=== PATIENT | male | born 1960 | race Caucasian/White ===

== ENCOUNTER 2016-10-31 14:33 | Emergency (ER) | payer OTHER ==
[2016-10-31 15:06] VITALS: BP 137/75
[2016-10-31] MEDS ORDERED: Tetan/Diph/Pertus SYR(Tdap)* 0.5 ML SYR(BOOSTRIX) use SYR IM ONE (16:26)
[2016-10-31] MEDS ORDERED: Acetaminophen TAB* 325 MG PO ONE (16:34)
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
--- NOTE | 2016-10-31 17:21 | RAD ---
HISTORY: Head trauma COMPARISONS: May 06, 2003 TECHNIQUE: Multiple contiguous axial CT scans were obtained of the head without intravenous contrast. FINDINGS: HEMORRHAGE/INFARCT: There is no hemorrhage or acute infarct. MASSES/SHIFT: There is no mass or shift. EXTRA-AXIAL SPACES: There are no extra-axial fluid collections. SULCI AND VENTRICLES: The sulci and ventricles are normal in size and position for the patient's stated age. CEREBRUM: There are no focal parenchymal abnormalities. BRAINSTEM: There are no focal parenchymal abnormalities. CEREBELLUM: There are no focal parenchymal abnormalities. VESSELS: The vessels are grossly normal. PARANASAL SINUSES: The paranasal sinuses are clear. ORBITS: The orbits are unremarkable. BONES AND SOFT TISSUE: No bone or soft tissue abnormalities are noted. OTHER: None IMPRESSION: NO ACUTE INTRACRANIAL PATHOLOGY.
[2016-10-31] MEDS ORDERED: Lidocaine 1% MPF* 2 ML VIAL ONE (17:27)
== END 2016-10-31 18:02 | disposition home or self-care (01) ==
LOC: UCCORT 14:33
DX: S01.112A Laceration without foreign body of left eyelid and periocular area, initial encounter (principal); S06.0X9A Concussion with loss of consciousness of unspecified duration, initial encounter; W20.8XXA Other cause of strike by thrown, projected or falling object, initial encounter; Y93.9 Activity, unspecified; Y99.9 Unspecified external cause status
CPT/HCPCS: 12013; 70450; 90471; 90715; 99212; A9270-GY; G0463

== ENCOUNTER 2018-03-09 16:47 | Emergency (ER) | payer BC ==
[2018-03-09] MEDS ORDERED: Diazepam TAB(*) 5 MG PO ONE ×2 (17:35→20:21)
[2018-03-09 18:07] LABS: Hematocrit 43 % (42-52); Hemoglobin 14.6 g/dl (14.0-18.0); Mean Corpuscular HGB Conc 34 g/dl (31-36); Mean Corpuscular Hemoglobin 32 pg (27-31); Mean Corpuscular Volume 95 fL (80-94); Mean Platelet Volume 7.4 um3 (7.4-10.4); Platelet Count 210 10^3/ul (150-450); Red Blood Count 4.51 10^6/ul (4.00-5.40); Red Cell Distribution Width 13 % (10.5-15); White Blood Count 15.9 10^3/ul (3.5-10.8)
[2018-03-09 18:30] LABS: EGFR Non-African American 88.6 (>60)
--- NOTE | 2018-03-09 18:35 | RAD ---
INDICATION: Shortness of breath, neck stiffness. COMPARISON: January 11, 2012 CT abdomen. TECHNIQUE: Dual energy PA and routine lateral views of the chest were obtained. REPORT: Clear lungs and pleural spaces. Negative for pneumothorax. Negative for cardiomegaly. Unremarkable central pulmonary vasculature. Mildly tortuous descending thoracic aorta. IMPRESSION: #. No evidence for acute intrathoracic disease.
[2018-03-09 18:38] LABS: ABS Basophils 0.1 10^3/ul (0-0.2); ABS Eosinophils 0.1 10^3/ul (0-0.6); ABS Lymphocytes 6.6 10^3/ul (1.0-4.8); ABS Monocytes 1.2 10^3/ul (0-0.8); ABS Nucleated RBC 0.1 10^3/ul; Eosinophil % 0.8 % (0-6); Lymphocyte % 41.4 % (25-47); Nucleated Red Blood Cells % 0.3
[2018-03-09] MEDS ORDERED: Iohexol 300* (CONTRAST) 10 ML SDV IV ONE (18:44)
--- NOTE | 2018-03-09 18:58 | ED ---
Throat Pain/Nasal Congestion - HPI Summary HPI Summary: Patient complains of neck stiffness, sensation of swollen throat, trouble breathing and swallowing starting yesterday. States he was out in the garden all day and neck started to hurt that evening and symptoms were worse this morning. Denies EDDY, altered mental status, trauma, fever, cough, CP, N/V/D, abdominal pain, change in urinary BM. Medical history is leukemia and Lyme disease. - History of Current Complaint Chief Complaint: EDNeckComplaint Time Seen by Provider: 03/09/18 17:17 Hx Obtained From: Patient Onset/Duration: Gradual Onset Severity: Severe Associated Signs And Symptoms: Positive: Dysphagia Cough: None - Allergies/Home Medications Allergies/Adverse Reactions: Allergies Allergy/AdvReac Type Severity Reaction Status Date / Time No Known Allergies Allergy Verified 03/09/18 17:03 PMH/Surg Hx/FS Hx/Imm Hx Endocrine/Hematology History: Denies: Hx Anticoagulant Therapy, Hx Diabetes History: Denies: Hx Dialysis, Hx Renal Disease Neurological History: Denies: Hx CVA - Immunization History Immunizations Up to Date: Yes Infectious Disease History: No Infectious Disease History: Denies: Traveled Outside the [place] in Last 30 Days - Family History Known Family History: Positive: Hypertension - Social History Alcohol Use: Daily Alcohol Amount: 1 beer today about 1600 Substance Use Type: Reports: None Smoking Status (MU): Never Smoked Tobacco Review of Systems Constitutional: Negative Eyes: Negative Positive: Sore Throat Cardiovascular: Negative Positive: Shortness Of Breath Gastrointestinal: Negative Genitourinary: Negative Musculoskeletal: Negative Skin: Negative Neurological: Negative Psychological: Normal All Other Systems Reviewed And Are Negative: Yes Physical Exam - Summary Physical Exam Summary: ENT exam normal. Negative Kernig's, negative Brudzinski. Limited range of motion of neck signs aside. Tenderness to palpation of paraspinal muscles of C- spine and bilateral trapezius. Full range of motion of jaw. Triage Information Reviewed: Yes Vital Signs On Initial Exam: Initial Vitals Temp Pulse Resp BP Pulse Ox 99.5 F 66 20 159/95 98 03/09/18 16:51 03/09/18 16:51 03/09/18 16:51 03/09/18 16:51 03/09/18 16:51 Vital Signs Reviewed: Yes Appearance: Positive: Well-Appearing Skin: Positive: Warm Head/Face: Positive: Normal Head/Face Inspection Eyes: Positive: Normal ENT: Positive: Normal ENT inspection Neck: Positive: Supple Respiratory/Lung Sounds: Positive: Clear to Auscultation Cardiovascular: Positive: Normal Abdomen Description: Positive: Nontender Musculoskeletal: Positive: Normal Neurological: Positive: Normal Psychiatric: Positive: Normal AVPU Assessment: Alert - Cammie Coma Scale Best Eye Response: 4 - Spontaneous Best Motor Response: 6 - Obeys Commands Best Verbal Response: 5 - Oriented Coma Scale Total: 15 Diagnostics - Vital Signs Vital Signs Temp Pulse Resp BP Pulse Ox 03/09/18 18:30 71 97 03/09/18 18:24 64 123/89 99 03/09/18 18:15 62 123/86 97 03/09/18 18:00 69 96 03/09/18 17:30 61 16 100 03/09/18 17:23 70 138/80 98 03/09/18 17:00 65 98 03/09/18 16:53 69 159/95 98 03/09/18 16:51 99.5 F 66 20 159/95 98 - Laboratory Lab Results: Lab Results 03/09/18 03/09/18 03/09/18 Range/Units 17:32 17:52 17:52 WBC 15.9 H (3.5-10.8) 10^3/ul RBC 4.51 (4.00-5.40) 10^6/ul Hgb 14.6 (14.0-18.0) g/dl Hct 43 (42-52) % MCV 95 H (80-94) fL MCH 32 H (27-31) pg MCHC 34 (31-36) g/dl RDW 13 (10.5-15) % Plt Count 210 (150-450) 10^3/ul MPV 7.4 (7.4-10.4) um3 Neut % (Auto) 50.0 (38-83) % Lymph % (Auto) 41.4 (25-47) % Marathon % (Auto) 7.4 H (0-7) % Eos % (Auto) 0.8 (0-6) % Baso % (Auto) 0.4 (0-2) % Absolute Neuts (auto) 8.0 H (1.5-7.7) 10^3/ul Absolute Lymphs (auto) 6.6 H (1.0-4.8) 10^3/ul Absolute Monos (auto) 1.2 H (0-0.8) 10^3/ul Absolute Eos (auto) 0.1 (0-0.6) 10^3/ul Absolute Basos (auto) 0.1 (0-0.2) 10^3/ul Absolute Nucleated RBC 0.1 10^3/ul Nucleated RBC % 0.3 Hem Pathologist Commnt Pending Sodium 142 (135-145) mmol/L Potassium 4.0 (3.5-5.0) mmol/L Chloride 110 (101-111) mmol/L Carbon Dioxide 24 (22-32) mmol/L Anion Gap 8 (2-11) mmol/L BUN 11 (6-24) mg/dL Creatinine 0.88 (0.67-1.17) mg/dL Est GFR ( Amer) 107.3 (>60) Est GFR (Non-Af Amer) 88.6 (>60) BUN/Creatinine Ratio 12.5 (8-20) Glucose 93 (70-100) mg/dL Calcium 9.3 (8.6-10.3) mg/dL Total Bilirubin 0.50 (0.2-1.0) mg/dL AST 17 (13-39) U/L ALT 16 (7-52) U/L Alkaline Phosphatase 86 (34-104) U/L Troponin I 0.00 (<0.04) ng/mL C-Reactive Protein 5.66 (<8.01) mg/L B-Natriuretic Peptide ( - 100) pg/mL Total Protein 6.4 (6.4-8.9) g/dL Albumin 4.0 (3.2-5.2) g/dL Globulin 2.4 (2-4) g/dL Albumin/Globulin Ratio 1.7 (1-3) Monoscreen Pending Group A Strep Rapid Negative (Negative) 03/09/18 Range/Units 17:52 WBC (3.5-10.8) 10^3/ul RBC (4.00-5.40) 10^6/ul Hgb (14.0-18.0) g/dl Hct (42-52) % MCV (80-94) fL MCH (27-31) pg MCHC (31-36) g/dl RDW (10.5-15) % Plt Count (150-450) 10^3/ul MPV (7.4-10.4) um3 Neut % (Auto) (38-83) % Lymph % (Auto) (25-47) % Marathon % (Auto) (0-7) % Eos % (Auto) (0-6) % Baso % (Auto) (0-2) % Absolute Neuts (auto) (1.5-7.7) 10^3/ul Absolute Lymphs (auto) (1.0-4.8) 10^3/ul Absolute Monos (auto) (0-0.8) 10^3/ul Absolute Eos (auto) (0-0.6) 10^3/ul Absolute Basos (auto) (0-0.2) 10^3/ul Absolute Nucleated RBC 10^3/ul Nucleated RBC % Hem Pathologist Commnt Sodium (135-145) mmol/L Potassium (3.5-5.0) mmol/L Chloride (101-111) mmol/L Carbon Dioxide (22-32) mmol/L Anion Gap (2-11) mmol/L BUN (6-24) mg/dL Creatinine (0.67-1.17) mg/dL Est GFR ( Amer) (>60) Est GFR (Non-Af Amer) (>60) BUN/Creatinine Ratio (8-20) Glucose (70-100) mg/dL Calcium (8.6-10.3) mg/dL Total Bilirubin (0.2-1.0) mg/dL AST (13-39) U/L ALT (7-52) U/L Alkaline Phosphatase (34-104) U/L Troponin I (<0.04) ng/mL C-Reactive Protein (<8.01) mg/L B-Natriuretic Peptide 27 ( - 100) pg/mL Total Protein (6.4-8.9) g/dL Albumin (3.2-5.2) g/dL Globulin (2-4) g/dL Albumin/Globulin Ratio (1-3) Monoscreen Group A Strep Rapid (Negative) Result Diagrams: 03/09/18 17:52 03/09/18 17:52 Lab Statement: Any lab studies that have been ordered have been reviewed, and results considered in the medical decision making process. - Radiology cxr Xray Interpretation: No Acute Changes Radiology Interpretation Completed By: Radiologist - EKG 1 Cardiac Rate: NL EKG Rhythm: Sinus Rhythm ST Segment: Non-Specific - T-wave inversion in lead 3, V1 Ectopy: None EKG Interpretation: non stemi, LVH EENT Course/Dx - Course Course Of Treatment: Patient complains of neck stiffness, sensation of swollen throat, trouble breathing and swallowing starting yesterday. States he was out in the garden all day and neck started to hurt that evening and symptoms were worse this morning. Denies EDDY, altered mental status, trauma, fever, cough, CP , N/V/D, abdominal pain, change in urinary BM. Medical history is leukemia and Lyme disease. Physical exam:ENT exam normal. Negative Kernig's, negative Brudzinski. Limited range of motion of neck signs aside. Tenderness to palpation of paraspinal muscles of C-spine and bilateral trapezius. Full range of motion of jaw. Labs unremarkable. Imaging unremarkable. Patient's symptoms improved nephrogenic with Valium and Toradol. Rx for Valium 5 mg - Diagnoses Provider Diagnoses: Muscle spasm Discharge - Sign-Out/Discharge Documenting (check all that apply): Patient Departure - Discharge Plan Condition: Stable Disposition: HOME Prescriptions: Diazepam TAB(*) [Valium TAB(*)] 5 mg PO TID PRN 2 Days #4 tab MDD 3 tabs PRN Reason: Pain Patient Education Materials: Muscle Spasm (ED) Referrals: Leonid Vora MD [Primary Care Provider] - Additional Instructions: Return to the ED for any new or worsening symptoms - Billing Disposition and Condition Condition: STABLE Disposition: Home
--- NOTE | 2018-03-09 19:55 | RAD ---
INDICATION: Shortness of breath. Throat pain. Stiffness and pain. History of leukemia and Lyme disease. COMPARISON: May 26, 2003 radiographs. TECHNIQUE: Multidetector CT images skull base to lung apices with 50 mL Omnipaque 300 IV contrast. Multiplanar reformation. REPORT: Unremarkable parotid glands. Variant LEFT larger than RIGHT submandibular glands without suspicious finding. Unremarkable thyroid gland. Patent bilateral internal jugular veins. No significant atherosclerotic plaque at the carotid bifurcations. Unremarkable pharyngeal mucosal space contours as well as the false and true vocal cords and visualized subglottic airway. Unremarkable symmetric parapharyngeal fat. Normal morphology of the epiglottis. No abnormal gas collection evident. No soft tissue plane inflammatory process or abscess collection evident. Normal size cervical lymph nodes visualized. Negative for lymphadenopathy by short axis size criteria. Clear visualized paranasal sinuses and mastoid air spaces. Negative for cervical spine fracture, facet subluxation, or suspicious focal osseous lesions. Multilevel facet joint osteoarthritis. Degenerative spondylosis most prominent at C6-C7 with vertebral endplate osteophytosis and moderate disc space narrowing. Congenitally generous pedicles lengths mitigate against development of acquired central canal stenosis. At C3-C4 uncinate process spurring and facet joint osteoarthritis results in moderate LEFT unilateral foraminal stenosis. IMPRESSION: #. Negative for lymphadenopathy. #. No soft tissue inflammatory process or mass evident. #. Negative for cervical spine fracture or facet subluxation. #. Cervical spine degenerative spondylosis and facet joint osteoarthritis. Congenitally generous pedicles lengths mitigate against development of acquired central canal stenosis. At C3-C4 uncinate process spurring and facet joint osteoarthritis results in moderate LEFT unilateral foraminal stenosis.
[2018-03-09] MEDS ORDERED: Ketorolac INJ* 30 MG/ML 1 ML VIAL IM ONE (20:21)
[2018-03-09] MEDS ORDERED: Ketorolac INJ* 30 MG/ML 1 ML VIAL IV ONE (20:24)
[2018-03-09 21:33] VITALS: BP 145/88
== END 2018-03-09 21:38 | disposition home or self-care (01) ==
LOC: ED 16:47
DX: M62.838 Other muscle spasm (principal); M47.812 Spondylosis without myelopathy or radiculopathy, cervical region; M77.9 Enthesopathy, unspecified; M48.02 Spinal stenosis, cervical region; Z85.6 Personal history of leukemia; Z86.19 Personal history of other infectious and parasitic diseases
CPT/HCPCS: 36415; 70491; 71046; 80053; 83880; 84484; 85025; 85060; 86140; 86308; 87651; 93005; 96374; 99284; A9270-GY; J1885; Q9967

== ENCOUNTER 2018-09-08 06:39 | Day surgery (SDC) | payer BC ==
--- NOTE | 2018-09-07 17:12 | HP ---
CC: Dr. Daria Vora, [place], [place]; [facility] [place], [place], [place] * DATE OF ADMISSION: 09/08/2018. AGE: 57-year-old male. ADMITTING DIAGNOSES: 1. Left hydronephrosis. 2. Obstructing calculus left proximal ureter. PLANNED PROCEDURE: Left retrograde left stent insertion (to be followed in the near future by lithotripsy). SURGEON: Dr. Benjamin Quick. HISTORY OF PRESENT ILLNESS: Nathen Simpson is a 57-year-old gentleman who initially had left flank pain, nausea, and vomiting two days ago. A CT scan had revealed an approximately 6 mm calculus in the left proximal ureter. An ultrasound done in my office on September 07 revealed left hydronephrosis with a 6 mm calculus in the proximal left ureter and evidence of perinephric extravasation. He had significantly reduced ureteral jets on the left side and because of the relative lack of progression of the calculus and the significantly reduced ureteral jets, he is now being brought in for urgent left stent insertion to be followed in the near future by shockwave lithotripsy. PAST MEDICAL HISTORY: Significant for chronic lymphocytic leukemia (no treatment), gastroesophageal reflux. PAST SURGICAL HISTORY: Significant for surgery for right hand injury ( resulting in eventual loss of two fingers), shockwave lithotripsy 20+ years ago. MEDICATIONS ON ADMISSION: Prevacid prn. ALLERGIES: No known drug allergies. FAMILY HISTORY: He has a strong family history of kidney stones, his mother, father, and a sibling. SMOKING HISTORY: He is a nonsmoker. REVIEW OF SYSTEMS: He is otherwise in excellent health. There is no history of diabetes mellitus or any other major systemic illness. PHYSICAL EXAMINATION GENERAL: Pleasant, middle-aged gentleman. VITAL SIGNS: Blood pressure 118/70, pulse 61 per minute and regular, oxygen saturation 96 percent on room air, temperature 96.4. CARDIOVASCULAR: Regular rate and rhythm. S1, S2. LUNGS: Clear bilaterally. ABDOMEN: Soft with mild left flank tenderness. IMPRESSION: Kthxf-vshh-iyeu-old gentleman with an obstructing calculus in the left proximal ureter and persistent left hydronephrosis. PLAN: Planned procedure is left retrograde left stent insertion to be followed in the near future by lithotripsy. [id number]/[facility] #: [id number] [facility]
[2018-09-08] MEDS ORDERED: cefTRIAXone(*) 2 GM ADDV.VIAL IVPB ONE (07:45)
[2018-09-08] MEDS ORDERED: Gentamicin ADULT (*) 160 MG in NS 0.9% 100 ML* 100 ML IVPB ONE (08:00)
[2018-09-08] MEDS ORDERED: DiMENhydriNATE IV* 50 MG/ML VIAL IV PUSH PRN (08:18)
[2018-09-08] MEDS ORDERED: fentaNYL* 50 MCG/ML 2 ML VIAL (100 MCG VIAL) IV PRN (08:18)
[2018-09-08] MEDS ORDERED: Naloxone* 0.4 MG/ML 1 ML VIAL IV PRN (08:18)
[2018-09-08] MEDS ORDERED: Acetaminophen TAB* 325 MG PO PRN (08:18)
[2018-09-08] MEDS ORDERED: HYDROcodone/ACETAMIN 5-325 MG* 1 TAB PO PRN (08:18)
[2018-09-08] MEDS ORDERED: Midazolam* 1 MG/ML 2 ML VIAL (2 MG) ONE (08:20)
[2018-09-08] MEDS ORDERED: fentaNYL* 50 MCG/ML 2 ML VIAL (100 MCG VIAL) ONE (08:20)
[2018-09-08] MEDS ORDERED: Iohexol 180 (CONTRAST) 10 ML SDV IV ONE (08:26)
[2018-09-08] MEDS ORDERED: Tamsulosin CAP* 0.4 MG ONE (10:28)
[2018-09-08 10:57] VITALS: BP 100/60
--- NOTE | 2018-09-08 11:01 | OP ---
CC: Dr. Daria Vora * DATE OF OPERATION: 09/08/18 - [facility] DATE OF : 56 SURGEON: Dr. Quick. ANESTHESIOLOGIST: Dr. Nichols. ANESTHESIA: Intravenous sedation. PRE-OP DIAGNOSES: 1. Left hydronephrosis. 2. Calculus, left proximal ureter. POST-OP DIAGNOSES: 1. Left hydronephrosis. 2. Calculus, left proximal ureter. OPERATIVE PROCEDURE: Cystoscopy, left retrograde pyelogram, left ureteral calculus manipulation, and left stent insertion. COMPLICATIONS: None. STENT USED: A 7-Chadian stent, left ureter. INDICATIONS: Nathen Simpson is a 57-year-old gentleman who was evaluated for an obstructing calculus in the left proximal ureter. He is being brought in for left stent insertion to be followed in the near future by shockwave lithotripsy. POSTOPERATIVE CONDITION: Stable. DESCRIPTION OF PROCEDURE: After induction of intravenous sedation, the patient was placed in dorsal lithotripsy position. Sequential compression devices were in in place and functioning. Initial cystoscopy revealed mild strictures in the bulbar urethra. The prostate was mildly enlarged. The bladder was examined and appeared unremarkable. Clear efflux was noted from the right orifice. There was a very little efflux noted from the left orifice. A guidewire was introduced and advanced under fluoroscopic monitoring. The calculus could be visualized in the proximal left ureter. Retrograde pyelogram revealed left hydronephrosis. The calculus was carefully manipulated proximally into the renal pelvis, and once this was done, a 7- Chadian stent was introduced and positioned under fluoroscopy with good proximal and distal positioning obtained. The bladder was emptied. The patient had an episode of what appears to have been bronchospasm at the end of the procedure, which was handled by Anesthesia, and the patient was transferred back to the recovery area in stable condition. [id number]/[facility] #: [id number] [facility]ITALKatiana
--- NOTE | 2018-09-08 11:44 | CONSULT ---
Consult Consult: Anesthesia Intra-operative Report: Mr. Simpson was scheduled for left retrograde ureteral stent insertion under MAC anesthetic with O2 FM at 10 L/min. The pt was stable during the beginning of the procedure, however at the time of ureteral stent deployment the pt had a severe visceral reaction causing him to obstruct and possibly laryngospasm. The pt began to desaturate, which was recognized immediately. I called for help and began to hand bag mask ventilate the pt with 100% O2 and an oropharyngeal airway (100 mm) to alleviate the pt's obstruction and appropriately oxygenate the patient. The pt's O2 saturation came back to high 90's and the pt was able to breath spontaneously. The procedure ended and the pt was stabilized, however it was noticed that the pt had large amount of secretions and blood coming from his mouth. Upon examination it appeared that tooth #23 appeared to be chipped, however it did not seem to be the source of bleeding (the pt possibly bit his buccal mucosa or tounge during his obstructive event). Once pt was taken to PACU the pt stated not to be sure if tooth #23 was previously chipped or if it was new. His stated it may be new. A CXR was taken to rule out aspiration of tooth debris, which radiology stated there was no acute cardiopulmonary process or foreign body within the lungs. Upon further discussion with the pt and his , the pt determined that he feels that this was an old chipped tooth and was not sustained during the procedure. I gave the the phone number to our anesthesia office if she and her would like to discuss this further. The pt was discharged from PACU to home in stable condition with no oxygen requirements. Blas Nichols MD
== END 2018-09-08 11:04 | disposition home or self-care (01) ==
LOC: OR 06:39
PROVIDERS: ATTEND Urology
DX: N13.2 Hydronephrosis with renal and ureteral calculous obstruction (principal); J38.5 Laryngeal spasm; G47.33 Obstructive sleep apnea (adult) (pediatric); K21.9 Gastro-esophageal reflux disease without esophagitis; Z85.6 Personal history of leukemia
CPT/HCPCS: 71045; 74018; 74420; C1876; J0696; J1580; J2250; J3010

== ENCOUNTER → 2018-09-13 10:17 | Day surgery (SDC) | payer BC ==
[~2018-09-13 10:17] MED LIST: Buffered Lidocaine 1% SYRIN* 1 ML/SYRINGE INTRADERM ONE; Dexamethasone IV* 4 MG/ML 1 ML (4 MG) ONE; Famotidine IV* 10 MG/ML 2 ML (20 mg) IV ONE; Famotidine IV* 10 MG/ML 2 ML (20 mg) ONE; Glycopyrrolate IV* 0.2 MG/ML 1 ML VIAL ONE; Lactated Ringers 1000 ML Bag* 1,000 ML IV SCH; Lidocaine 2% PF * 5 ML VIAL ONE; Midazolam* 1 MG/ML 5 ML VIAL (5 MG) ONE; Naloxone* 0.4 MG/ML 1 ML VIAL IV PRN; Ondansetron INJ* 2 MG/ML VIAL IV PRN; Ondansetron INJ* 2 MG/ML VIAL ONE; Propofol* 10 MG/ML 20 ML BTL ONE; cefTRIAXone(*) 2 GM ADDV.VIAL IVPB ONE; fentaNYL* 50 MCG/ML 2 ML VIAL (100 MCG VIAL) IV PRN; fentaNYL* 50 MCG/ML 2 ML VIAL (100 MCG VIAL) ONE; oxyCODONE/Acetamin 5/325 MG* TAB PO PRN
[2018-09-13 16:09] VITALS: BP 131/87
--- NOTE | 2018-09-13 20:42 | OP ---
CC: Dr. Daria Vora * DATE OF OPERATION: 09/13/18 - [facility] DATE OF : 56 SURGEON: Benjamin Quick M.D. ANESTHESIOLOGIST: Dr. Chahal. ANESTHESIA: General. PRE-OP DIAGNOSIS: Left renal calculus. POST-OP DIAGNOSIS: Left renal calculus. OPERATIVE PROCEDURE: Shockwave lithotripsy of left renal calculus. COMPLICATIONS: None. POSTOPERATIVE CONDITION: Stable. INDICATIONS: Nathen Simpson is a 57-year-old gentleman, who had undergone urgent stent insertion because of an obstructing calculus of the left ureteropelvic junction. He is now being brought in for lithotripsy. DESCRIPTION OF PROCEDURE: After induction of general anesthesia, the patient was placed on lithotripsy table in supine position. The calculus, which was at the level of the left renal pelvis, adjacent to the stent was localized using fluoroscopy. Shockwave lithotripsy was commenced at a rate of 60 shocks per minute. Periodic imaging revealed good localization and a total of 2400 shocks were administered. The patient tolerated the procedure satisfactorily and was transferred back to the recovery area in stable condition. [id number]/[facility] #: [id number] MTDD
== END | disposition home or self-care (01) ==
LOC: OR 10:17
PROVIDERS: ATTEND Urology
DX: N20.0 Calculus of kidney (principal); G47.33 Obstructive sleep apnea (adult) (pediatric); Z85.6 Personal history of leukemia; K21.9 Gastro-esophageal reflux disease without esophagitis; Z86.718 Personal history of other venous thrombosis and embolism
CPT/HCPCS: 74018; J0696; J1100; J2250; J2405; J2704; J3010